=== PATIENT | female | born 1965 | race Caucasian/White ===

== ENCOUNTER → 2018-09-30 | Outpatient (CLI) | payer OTHER ==
[2018-09-30 16:20] LABS: HCT 40.9 % (34.0-46.0); HGB 14.2 gm/dL (11.4-16.0); MCH 29.8 pg (25.0-35.0); MCHC 34.7 g/dL (31.0-37.0); MCV 85.8 fL (80.0-100.0); Mean Platelet Volume 7.1; Platelet Count 213 k/uL (150-450); RBC 4.76 m/uL (3.80-5.40); RDW 13.8 % (11.5-15.5); WBC 7.5 k/uL (3.8-10.6)
[2018-09-30 16:26] LABS: Anion Gap 9 mmol/L; Blood Urea Nitrogen 13 mg/dL (7-17); Carbon Dioxide 25 mmol/L (22-30); Chloride 107 mmol/L (98-107); Potassium 4.3 mmol/L (3.5-5.1); Sodium 141 mmol/L (137-145)
[2018-09-30 16:28] LABS: INR 0.9 (<1.2); Partial Thromboplastin Time 23.7 sec (22.0-30.0); Prothrombin Time 9.9 sec (9.0-12.0)
[2018-09-30 17:10] LABS: Appearance,Urine Clear (Clear); Bilirubin,Urine Negative (Negative); Blood,Urine Negative (Negative); Color,Urine Yellow; Glucose,Urine (UA) Negative (Negative); Ketones,Urine Negative (Negative); Leukocyte Esterase,Urine Negative (Negative); Nitrite,Urine Negative (Negative); Protein,Urine Negative (Negative); Specific Gravity,Urine 1.022 (1.001-1.035); Urobilinogen,Urine <2.0 mg/dL (<2.0)
== END ==
LOC: LABPAT 15:48
PROVIDERS: ATTEND Orthopaedic Surgery
DX: Z01.812 Encounter for preprocedural laboratory examination (principal)
CPT/HCPCS: 80051; 81003; 82565; 84520; 85027; 85610; 85730; 87070

== ENCOUNTER 2018-10-12 07:14 | Inpatient (IN) | payer OTHER ==
[2018-10-05 10:50] VITALS: BMI 34.4
[~2018-10-12 07:14] MED LIST: ACETAMINOPHEN TAB 500 MG TAB PO ONE; LIDOCAINE 1% 20 ML VIAL (10MG/ML) FOR IV START INTRADERMA PRN; MELOXICAM 7.5 MG TAB PO ONE; MIDAZOLAM (PF) 2 MG/2 ML VIAL IV PRN; ROPIVACAINE 246.25 MG, EPINEPHrine 0.5 MG, KETOROLAC 30 MG, cloNIDine HCL/PF 80 MCG, WA... MISCELLANE ONE; TRANEXAMIC ACID 1,000 MG in SODIUM CHLORIDE 0.9% 100 ML IVPB ONE; ceFAZolin IN SWFI 2 GM/20 ML SYRINGE IVP ONE; fentaNYL (PF) 50 MCG/ML 2 ML AMP IV PRN
[2018-10-12] MEDS ORDERED: ONDANSETRON 4 MG/2 ML VIAL IVP ONE (08:03)
[2018-10-12] MEDS: LACTATED RINGERS 1,000 ML IV SCH ×3 (08:03→11:48)
[2018-10-12] MEDS ORDERED: DEXAMETHASONE SOD PHOSPHATE 10 MG/ML 1 ML VIAL IV ONE (08:04)
[2018-10-12] MEDS ORDERED: fentaNYL (PF) 50 MCG/ML 2 ML AMP IV ONE (08:15)
[2018-10-12] MEDS ORDERED: MIDAZOLAM 2 MG/2 ML VIAL IV ONE (08:15)
--- NOTE | 2018-10-12 08:36 | P.ONQ ---
Anesthesiology Proc Note - PNB - Peripheral Nerve Block Performed Left Adductor Canal Infusion Time Out Performed: Yes Procedure Start Time: 08:15 Procedure Stop Time: :25 Indication: Requested by physician Specifically requested for management of pain by : Magdy Rayo Sedation Type: Sedate with meaningful contact maintained Preparation: Sterile Dressing Needle Types: On-Q Needle Size: 100mm (4") Needle Gauge: 21 Technique: Ultrasound Injectate: 0.5% Ropivacaine (see comment for volume) Blood Aspirated: No Pain Paresthesia on Injection Noted: No Resistance on Injection: Normal Events: Uneventful and Well Tolerated
[2018-10-12] MEDS ORDERED: ROPIVACAINE 1,100 MG, SODIUM CHLORIDE 0.9% 500 ML 330 ML MISCELLANE PRN ×2 (08:37)
[2018-10-12] MEDS ORDERED: HYDROmorphone 1 MG/ML 1 ML SYRINGE IVP PRN (08:50)
[2018-10-12] MEDS ORDERED: ONDANSETRON 4 MG/2 ML VIAL IVP PRN (08:50)
[2018-10-12] MEDS ORDERED: NALOXONE 0.4 MG/ML 1 ML VIAL IV PRN (08:50)
[2018-10-12] MEDS ORDERED: MAGNESIUM HYDROXIDE 2,400 MG/10 ML CUP PO PRN (08:50)
[2018-10-12] MEDS ORDERED: DIAZEPAM 5 MG TAB PO PRN (08:50)
[2018-10-12] MEDS ORDERED: NA PHOS,M-B/NA PHOS,DI-BA 133 ML ENEMA RECTAL PRN (08:50)
[2018-10-12] MEDS ORDERED: HYDROmorphone 0.5 MG/0.5 ML SYRINGE IVP PRN ×2 (08:50)
[2018-10-12] MEDS ORDERED: HYDROcodone/APAP 5-325MG 1 EACH TAB PO PRN (08:50)
[2018-10-12] MEDS ORDERED: BISACODYL 10 MG SUPP RECTAL PRN (08:50)
[2018-10-12] MEDS ORDERED: PROPOFOL 10 MG/ML 20 ML VIAL IV ONE (09:11)
[2018-10-12] MEDS ORDERED: MIDAZOLAM 2 MG/2 ML VIAL ONE (09:11)
[2018-10-12] MEDS ORDERED: SODIUM CHLORIDE 0.9% 100 ML BAG ONE (09:11)
[2018-10-12] MEDS ORDERED: TRANEXAMIC ACID 1,000 MG/10 ML VIAL ONE (09:11)
[2018-10-12] MEDS ORDERED: fentaNYL (PF) 50 MCG/ML 2 ML AMP ONE (09:11)
[2018-10-12] MEDS ORDERED: ceFAZolin 3,000 MG in SODIUM CHLORIDE 0.9% IRRIGATIO 3,000 ML IRRIGATION ONE (09:15)
--- NOTE | 2018-10-12 10:34 | P.OP ---
Date of Procedure: 10/12/18 Preoperative Diagnosis: Severe osteoarthritis left knee Postoperative Diagnosis: Severe osteoarthritis left knee Procedure(s) Performed: Left total knee arthroplasty Implants: [employer] Journey II CR Oxinium cruciate retaining femoral component size 4, left [employer] Journey left nonporous tibial baseplate size 5 [employer] Journey II, XLPE CR articular insert, size 9 mm, Size 5-6 left [employer] Journey BCS resurfacing oval patellar component, 32 mm All components were cemented using [place] R bone cement.. The articulation is Oxinium on polyethylene. Anesthesia: spinal Surgeon: Magdy Rayo Rn Discharge #1: Madiha Tian Estimated Blood Loss (ml): 25 Pathology: other (Bone and cartilage) Condition: stable Disposition: PACU Indications for Procedure: After failure of conservative treatment we discussed the surgical and nonsurgical treatment options at length. Patient wishes to proceed with a total knee arthroplasty. Complications specific to this procedure were discussed at length, including but not limited to infection, bleeding, stiffness , and nerve injury. Patient is aware of all these complications and informed consent was obtained Operative Findings: The operative findings are consistent with severe osteoarthritis of the left knee Description of Procedure: Patient was seen in the preoperative area consent was reviewed and operative site was marked with a skin marker. An adductor canal pain catheter was placed by anesthesia in the preoperative area. Patient was then brought to the operating room and given preoperative antibiotics intravenously. A spinal anesthetic was administered by the anesthesia department. A tourniquet was placed on the upper thigh and the lower extremity was prepped and draped in usual sterile fashion. A gram of transexamic acid was given. A universal timeout was then performed which confirmed the patient's name, surgical site, ALLERGIES, and consent. The lower extremity was then exsanguinated and tourniquet was inflated to 250 mmHg. A standard and anterior midline approach to the knee was performed. The skin and subcutaneous tissue was dissected down to the patellar tendon. A medial parapatellar arthrotomy was then performed. The knee was then extended, the patellar was everted, and the knee was again flexed. Anterior horns of both menisci were excised, and a release was performed to the posterior medial aspect of the knee. On gross visual inspection, there was complete loss of articular cartilage in the medial and patellofemoral joint spaces. There was also significant cartilage damage in the lateral compartment. There were multiple periarticular osteophytes which were then removed with a Ronguer. The femoral canal was then opened with the appropriate drill, and the intramedullary femoral cutting guide was then placed and set for 5 of valgus. The distal femoral cutting block was then pinned in place, and the distal femur was then cut. The cutting block was then removed and the cut was checked for flatness. Next, the sizing guide was then placed and set for 3 external rotation based off of the epicondylar axis and [place] line. After the femur was sized, the appropriate 4-in-1 cutting block was then pinned in place. The anterior condyles were cut without notching. The posterior and chamfer cuts were performed while protecting the collateral ligaments. The cutting block was then removed, and the femoral canal was plugged with autologous bone. Attention was then directed to the tibia. The remaining ACL was removed with a Ronguer, and the tibia was then gently subluxed forward with a large bent knee retractor. Any remaining menisci was excised. The posterior lateral corner was cauterized in order to cauterize the lateral geniculate artery. The extra medullary tibial cutting guide was then placed, set for the appropriate rotation , slope, and depth of resection. The proximal tibia cutting guide was then pinned in place. Proximal tibia was then cut and sized. Next trials were then placed with the appropriate-sized insert. The knee was able to fully extend and flex to 130 and was stable throughout all range of motion. The knee was then extended, patella everted. Patella was then measured, and then using an osteotomy guide, the patella was cut at the appropriate level. The patella was then measured and drilled and the patella trial was then placed. The knee was then taken through range of motion with the patella trial and the patella tracked normally. The knee was then extended patella trial was then removed and the patella was everted. Knee was then flexed and lug holes were drilled through the femoral trial and the femoral trial was then removed. The tibial was then exposed, and the tibial broach guide was then pinned in place after it was set for the appropriate rotation to allow for the most coverage without overhang. The tibia was then reamed and broached. The cut surfaces of bone were then irrigated with pulsatile lavage. The posterior structures were injected with the ropivacaine solution. The knee was also irrigated with Irrisept solution. The components were then opened, the cement was mixed, and the components were then cemented in place. The cement was allowed to harden with the knee in full extension. While the cement was hardening, the remaining soft tissues were then injected with a ropivacaine solution, which consisted of 246.25 mg of ropivacaine, 0.5 mg of epinephrine, 30 mg of Toradol, 80 g of clonidine, and 48.45 mL of sterile water, for a total of 100 mL of fluid injected. After the cemented hardened. The tourniquet was released, and hemostasis was obtained. A second gram of transexamic acid was given. The knee was again irrigated. The knee was again taken through range of motion and found to be stable throughout all range of motion of 0-130 , and the patella tracked normally. The fascia was then closed with #2 strata fix suture. The subcutaneous tissue was closed with 3-0 Vicryl and 3-0 strata fix. Dermabond glue was used for the skin and placed with the knee in flexion. The patient was placed in a sterile silver dressing. Patient was then transferred to recovery room in stable condition. The observation assistant MARIO Norton was required due the complexity surgery and the need for a skilled instructor adjunct surgical technician. She assisted in positioning, draping, retraction, and closure of the wound.
[2018-10-12] MEDS ORDERED: LACTATED RINGERS 1,000 ML IV ONE (10:44)
--- NOTE | 2018-10-12 11:54 | XR ---
EXAMINATION TYPE: XR knee limited LT DATE OF EXAM: 10/12/2018 COMPARISON: NONE TECHNIQUE: Two views submitted HISTORY: Post op FINDINGS: There is a prosthetic knee in near anatomic alignment. There is soft tissue edema and emphysema. IMPRESSION: 1. Postoperative change. Appears in near-anatomic alignment
[2018-10-12] MEDS: HYDROcodone/APAP 5-325MG 1 EACH TAB PO PRN ×2 (13:28→21:01)
[2018-10-12] MEDS: ceFAZolin IN SWFI 2 GM/20 ML SYRINGE IVP SCH (17:18)
[2018-10-12] MEDS: SODIUM CHLORIDE 0.9% 1,000 ML IV SCH (17:21)
[2018-10-12] MEDS: ASPIRIN 325 MG TAB PO SCH (21:01)
[2018-10-12] MEDS: SENNOSIDES-DOCUSATE SODIUM 1 EACH TAB PO SCH (21:02)
--- NOTE | 2018-10-12 22:16 | CONS ---
CONSULTATION DATE OF CONSULTATION: 10/12/2018 REASON FOR CONSULTATION: Medical management requested by Dr. Rayo. CONSULTATION: This is a 52-year-old patient of Dr. Julio Starks who has undergone a left total knee arthroplasty. Pain is controlled. No nausea, vomiting. Chronic stable medical conditions include seizure disorder, osteoarthritis of the joints, GERD, and insomnia. The patient denies any cardiac history. at the bedside. Pain is controlled. Did tolerate a liquid diet. REVIEW OF SYSTEMS: CONSTITUTIONAL: None. HEENT: None. RESPIRATORY: None. GASTROINTESTINAL: Occasional heartburn. GENITOURINARY: None. MUSCULOSKELETAL: Arthritic pain in different joints. DERMATOLOGICAL, HEMATOLOGIC, LYMPHATIC: None. PSYCHIATRY: None. NEUROLOGICAL: Trouble sleeping for which takes marijuana. PAST MEDICAL HISTORY: Seizure disorder, osteoarthritis, GERD, last seizure disorder back in . PAST SURGICAL HISTORY: Left knee scope, colonoscopy. SOCIAL HISTORY: Does marijuana 2 or 3 times a week. Stopped smoking in . . FAMILY HISTORY: Reviewed, noncontributory to presentation. HOME MEDICATIONS: Phenobarbital 97.2 mg p.o. q.h.s. ALLERGIES: None. PHYSICAL EXAMINATION: Temperature 97.4, pulse 77, respirations 16, blood pressure 118/79, pulse ox 99% on room air. GENERAL APPEARANCE: Well-built, sitting up, comfortable. BMI 34.6. EYES: Pupils equal. Conjunctivae normal. HEENT: External ears and nose normal. Oral cavity normal. NECK: JVD not raised. Mass not palpable. Respiratory effort normal. LUNGS: Clear. CARDIOVASCULAR: 1st and 2nd sounds normal. No edema. ABDOMEN: Soft, nontender. Liver and spleen not palpable. LYMPHATICS: No lymph node palpable in neck or axillae. PSYCHIATRY: Alert and oriented x3. Mood and affect normal. NEUROLOGIC: Cranial nerves grossly intact. Power and sensation grossly intact. EXTREMITIES: Left knee in a dressing. INVESTIGATIONS: Blood work from 09/30/2018 shows white count 7.5, hemoglobin 14.2, potassium 4.3. ASSESSMENT: 1. Left total knee arthroplasty. 2. Primary osteoarthritis in multiple joints. 3. Chronic intermittent gastroesophageal reflux disease. 4. Chronic epilepsy, controlled on phenobarbital. 5. Obesity, BMI 34.3. PLAN: Home medications resumed. DVT prophylaxis per Dr. Rayo off. Pain control is in place. Care was discussed with the patient at the bedside. Questions were answered. Thank you, Dr. Rayo. JERRYL / MENDYN: [id number] /
[2018-10-12] MEDS: PHENobarbital 32.4 MG TAB PO SCH (22:21)
[2018-10-13] MEDS: ceFAZolin IN SWFI 2 GM/20 ML SYRINGE IVP SCH (01:18)
[2018-10-13] MEDS: HYDROcodone/APAP 5-325MG 1 EACH TAB PO PRN (05:23)
[2018-10-13] MEDS: hydrOXYzine PAMOATE 25 MG CAP PO PRN ×3 (05:24→16:40)
[2018-10-13] MEDS: SODIUM CHLORIDE 0.9% 1,000 ML IV SCH ×2 (05:47→08:41)
[2018-10-13] MEDS: LACTATED RINGERS 1,000 ML IV SCH (08:41)
[2018-10-13] MEDS: ASPIRIN 325 MG TAB PO SCH ×2 (08:47→20:25)
[2018-10-13] MEDS ORDERED: MELOXICAM 7.5 MG TAB PO SCH (09:00)
[2018-10-13] MEDS ORDERED: HYDROcodone/APAP 7.5-325MG 1 EACH TAB PO PRN (09:10)
--- NOTE | 2018-10-13 09:16 | P.PN ---
Subjective Progress Note Date: 10/13/18 This is a 53-year-old female who is status post left total knee arthroplasty. This is postoperative day #1. Patient is seen and evaluated at bedside with Dr. Magdy Rayo. Patient does complain of left knee pain today. Patient states that she had to have her On-Q pump removed yesterday because it was causing her pain. Patient states that she has been up and walking with physical therapy. Patient denies any fever/chills, numbness, weakness, tingling , abdominal pain, shortness of breath or chest pain. Objective - Vital Signs Vital signs: Vital Signs Temp 98.5 F 10/13/18 08:45 Pulse 82 10/13/18 08:45 Resp 18 10/13/18 08:51 BP 154/71 10/13/18 08:45 Pulse Ox 96 10/13/18 08:45 Intake & Output 10/12/18 10/13/18 10/13/18 18:59 06:59 18:59 Intake Total 1401 Output Total 25 Balance 1376 Weight 100.1 kg Intake: IV 1401 Output: Estimated Blood Loss 25 Other: Voiding Method Toilet # Voids 2 1 1 - Exam Vital signs are stable. Patient is in no acute distress and is alert and oriented 3. Calf is soft and nontender to palpation. Dressing is clean, dry, and intact. Patient has full foot and ankle motion without pain or difficulty. Neurovascular status and circulatory status are intact. Assessment and Plan Assessment: Seizure disorder Status post left total knee arthroplasty. (1) Osteoarthritis of left knee Current Visit: Yes Status: Acute Code(s): M17.12 - UNILATERAL PRIMARY OSTEOARTHRITIS, LEFT KNEE SNOMED Code(s): 861790506232265 Plan: #1 Continue with routine postoperative care and pain control, leave dressing in place for ten days. #2 Anticoagulation with aspirin. #3 Physical therapy and CPM today. #4 Appreciate input from medicine. #5 Will increase [place] to 7.5/325mg and add Toradol for pain. #6 Anticipate discharge home with home care likely tomorrow.
[2018-10-13 09:19] LABS: Basophils # (A) 0.1 k/uL (0-0.2); Basophils % (A) 1 %; Eosinophils # (A) 0.2 k/uL (0-0.7); Eosinophils % (A) 2 %; HCT 36.4 % (34.0-46.0); HGB 12.2 gm/dL (11.4-16.0); Lymphocytes % (A) 31 %; MCH 29.1 pg (25.0-35.0); MCHC 33.3 g/dL (31.0-37.0); MCV 87.2 fL (80.0-100.0); Mean Platelet Volume 6.5; Monocytes # (A) 0.3 k/uL (0-1.0); Monocytes % (A) 4 %; Neutrophils % (A) 61 %; Platelet Count 195 k/uL (150-450); RBC 4.18 m/uL (3.80-5.40); RDW 13.8 % (11.5-15.5); WBC 6.6 k/uL (3.8-10.6)
[2018-10-13] MEDS: KETOROLAC 30 MG/ML 1 ML VIAL IVP SCH ×2 (10:56→17:13)
[2018-10-13] MEDS: HYDROcodone/APAP 7.5-325MG 1 EACH TAB PO PRN ×2 (10:56→16:40)
--- NOTE | 2018-10-13 12:28 | P.PN ---
Progress Note - Text 10/13 53-year-old female status post total knee replacement by Dr. Magdy powers, patient had an On-Q pump for postop pain control and I was called last night by the nurse with the patient complaining of knee pain and related to the surgical site. Most probably it was related to tourniquet, nonetheless the patient insisted on having the catheter for On-Q pump DC'd. I gave the nurse to discontinue the pump. Patient seen this morning she is doing well, no swelling noted at the site or any inflammation.
[2018-10-13] MEDS: SENNOSIDES-DOCUSATE SODIUM 1 EACH TAB PO SCH (20:25)
--- NOTE | 2018-10-13 20:25 | PN ---
PROGRESS NOTE DATE OF SERVICE: 10/13/2018 PRESENTING COMPLAINT: Left knee surgery. INTERVAL HISTORY: The patient is feeling better. Did work with therapy. Did tolerate a diet. No nausea or vomiting. No chest pain. REVIEW OF SYSTEMS: Done for constitutional, cardiovascular, GI, pulmonary, musculoskeletal; relevant findings as above. CURRENT MEDICATIONS: Reviewed. PHYSICAL EXAMINATION: Temperature 97.8, pulse 86, respiration 16, blood pressure 138/73, pulse ox 96% on room air. GENERAL APPEARANCE: Lying in bed, comfortable. EYES: Pupils equal. Conjunctivae normal. NECK: JVD not raised. Mass not palpable. RESPIRATORY: Effort normal. Lungs are clear. CARDIOVASCULAR: First and second sounds normal. No edema. ABDOMEN: Soft, non-tender. Liver and spleen not palpable. PSYCHIATRY: Alert and oriented x3. Mood and affect normal. INVESTIGATIONS: White count 6.6, hemoglobin 12.2. ASSESSMENT: 1. Left total knee arthroplasty. 2. Primary osteoarthritis of multiple joints. 3. Gastroesophageal reflux disease. 4. Chronic epilepsy, controlled on phenobarbital. 5. Obesity with body mass index 34.3. PLAN: Continue current medication and treatment plan. Care was discussed with the patient. Thank you. MMODL / IJN: [id number] /
[2018-10-13] MEDS: PHENobarbital 32.4 MG TAB PO SCH (20:26)
[2018-10-14] MEDS: KETOROLAC 30 MG/ML 1 ML VIAL IVP SCH ×3 (00:03→11:54)
[2018-10-14] MEDS: SODIUM CHLORIDE 0.9% 1,000 ML IV SCH (03:59)
[2018-10-14] MEDS: ASPIRIN 325 MG TAB PO SCH (07:55)
[2018-10-14 08:00] VITALS: BP 148/90; PULSE 78; RESP 16; TEMP 98.2
[2018-10-14] MEDS: LACTATED RINGERS 1,000 ML IV SCH (08:00)
--- NOTE | 2018-10-14 09:44 | P.DS ---
Providers Date of admission: 10/13/18 13:38 Expected date of discharge: 10/14/18 Attending physician: Magdy Rayo Consults: 10/12/18 08:50 Consult Physician Routine Consulting Provider: Julio Starks Consult Reason/Comments: medical management Do you want consulting provider notified?: Yes 10/12/18 11:27 Consult Physician Routine Consulting Provider: Edd Blanca Consult Reason/Comments: medical management Do you want consulting provider notified?: Yes Primary care physician: Julio Starks - Discharge Diagnosis(es) (1) Osteoarthritis of left knee Current Visit: Yes Status: Acute (2) S/P total knee arthroplasty Current Visit: Yes Status: Acute Hospital Course: This is a 53-year-old female with known history of degenerative arthritis of the left knee. The patient presents for evaluation. After discussion and consideration patient elects to proceed with total knee arthroplasty. The patient is seen preoperatively by Dr. Rayo and medically cleared for surgery by their primary care physician. Patient is admitted to [facility] on 10/13/2018 for total knee arthroplasty. The procedures performed without complication or sequelae. The patient is doing well postoperatively. Labs and vital signs are stable on day of discharge. On day of discharge patient's knee incision is healing well. There is minimal erythema. There is no drainage noted at this time. There is minimal soft tissue swelling to the knee. Patient has full foot and ankle motion without difficulty or pain. Calf is soft and nontender to palpation. Neurovascular status to the left lower extremity is intact. Patient is discharged home in good condition. Opioid start talking form is reviewed and signed at patient bedside. Please see med rec for accurate list of home medications. Plan - Discharge Summary Discharge Rx Participant: Yes New Discharge Prescriptions: New Aspirin 325 mg PO BID #60 tab HYDROcodone/APAP 7.5-325MG [[place] 7.5-325] 1 - 2 tab PO Q6H PRN #56 tab PRN Reason: Pain hydrOXYzine PAMOATE [Vistaril] 25 mg PO Q6H PRN #20 capsule PRN Reason: Pain Ketorolac [Toradol] 10 mg PO Q6HR #8 tab Sennosides [Senokot] 1 tab PO BID #60 tablet No Action PHENobarbital 97.2 mg PO HS Discharge Medication List PHENobarbital 97.2 mg PO HS 10/05/18 [History] Aspirin 325 mg PO BID #60 tab 10/14/18 [Rx] HYDROcodone/APAP 7.5-325MG [[place] 7.5-325] 1 - 2 tab PO Q6H PRN #56 tab [Rx] Ketorolac [Toradol] 10 mg PO Q6HR #8 tab 10/14/18 [Rx] Sennosides [Senokot] 1 tab PO BID #60 tablet 10/14/18 [Rx] hydrOXYzine PAMOATE [Vistaril] 25 mg PO Q6H PRN #20 capsule 10/14/18 [Rx] Follow up Appointment(s)/Referral(s): [facility] [NON-STAFF] - 1 Week (walker ) [facility], [NON-STAFF] - As Needed Julio Starks MD [Primary Care Provider] - 10/24/18 11:00 am Magdy Rayo DO [Doctor of Osteopathic Medicine] - 10/26/18 10:20 am Ambulatory/Diagnostic Orders: Continuous Passive Motion (CPM) Machine [DME.AMB1] Time Frame: 3 Weeks, Location : None Selected Activity/Diet/Wound Care/Special Instructions: Weightbearing as tolerated with a walker. CPM 5-6h daily. Leave dressing intact. May be removed by home care nurse or by patient in 10 days. May shower with dressing on. Please follow up with [facility] and call with any questions or concerns, . Discharge Disposition: HOME WITH HOME HEALTH SERVICES
[2018-10-14] MEDS: hydrOXYzine PAMOATE 25 MG CAP PO PRN (11:51)
[2018-10-14] MEDS: HYDROcodone/APAP 7.5-325MG 1 EACH TAB PO PRN (11:51)
== END 2018-10-14 12:07 | disposition home health service (06) | DRG 470 ==
LOC: OR 07:14 → 4SSUR 11:05 → OR 10-13 13:38 → 4SSUR 10-13 13:38
PROVIDERS: ADMIT Orthopaedic Surgery; ATTEND Orthopaedic Surgery
PROC: 0SRD069 Replacement of Left Knee Joint with Oxidized Zirconium on Polyethylene Synthetic Substitute, Cemented, Open Approach (ICD-10-PCS; principal; 2018-10-12 09:20)
DX: M17.12 Unilateral primary osteoarthritis, left knee (principal); G40.909 Epilepsy, unspecified, not intractable, without status epilepticus; K21.9 Gastro-esophageal reflux disease without esophagitis; G47.00 Insomnia, unspecified; E66.9 Obesity, unspecified; Z68.34 Body mass index [BMI] 34.0-34.9, adult; Z79.899 Other long term (current) drug therapy; Z86.59 Personal history of other mental and behavioral disorders; Z87.891 Personal history of nicotine dependence
CPT/HCPCS: 85025; 88300

== ENCOUNTER → 2020-09-21 | Outpatient (CLI) | payer OTHER ==
--- NOTE | 2020-09-22 13:46 | MM ---
Reason for exam: screening (asymptomatic). Last mammogram was performed 4 years and 9 months ago. History: Patient is postmenopausal. Family history of breast cancer in cousin at age 60. Physical Findings: A clinical breast exam by your physician is recommended on an annual basis and results should be correlated with mammographic findings. MG Screening Mammo w CAD Bilateral CC and MLO view(s) were taken. Prior study comparison: January 02, 2016, bilateral MG screening mammo w CAD. August 10, 2014, bilateral MG screening mammo w CAD. There are benign appearing round calcifications bilaterally. There is no discrete abnormality. ASSESSMENT: Benign, BI-RAD 2 RECOMMENDATION: Routine screening mammogram of both breasts in 1 year.
== END | disposition home or self-care (01) ==
LOC: RADMAMWWP 12:18
PROVIDERS: ATTEND Family Medicine
DX: Z12.31 Encounter for screening mammogram for malignant neoplasm of breast (principal)
CPT/HCPCS: 77067